=== PATIENT | female | born 1970 | race Caucasian/White ===

== ENCOUNTER 2018-06-28 18:34 | Emergency (ER) | payer SELFPAY ==
[2018-06-28 18:35] VITALS: BP 159/94; PULSE 79; RESP 18; TEMP 36.6; O2SAT 98; BMI 38.5
[2018-06-28 19:33] LABS: Absolute Lymphocyte Count 2.53 X10^3/ul (0.83-4.51); Absolute Neutrophil Count 3.6 X10^3/uL (2.0-7.7); Basophil# 0.04 X10^3/uL; Basophil% 0.6 % (0-1); Eosinophil# 0.31 X10^3/uL; Eosinophils% 4.4 % (0-5); Hematocrit 39.9 % (37-47); Hemoglobin 13.4 g/dl (12.0-15.0); Lymphocyte # 2.53 X10^3/ul (4.0); Lymphocyte % 35.7 % (19-41); Mean Corp Hgb Conc 33.6 g/gl (32-36); Mean Corpuscular Hgb 30.2 pg (27.0-32.0); Mean Corpuscular Volume 90.1 fL (81-99); Mean Platelet Vol. 10.1 fl (6.2-12.0); Monocyte# 0.61 X10^3/uL; Monocyte% 8.6 % (0-10); Neutrophil # 3.59 X10^3/uL (2.7-7.7); Neutrophil % 50.6 % (47-70); Platelet Count 234 K/mm3 (150-450); RBC Distribution Width CV 13.5 % (11.6-14.6); RBC Distribution Width SD 44.8 fl (35.1-43.9); Red Blood Count 4.43 M/mm3 (4.2-5.4); White Blood Count 7.1 K/mm3 (4.4-11.0)
[2018-06-28 19:37] LABS: POSITIVE COUNT NO; POSITIVE DIFFERENTIAL NO; POSITIVE MORPHOLOGY NO
[2018-06-28 19:40] LABS: Anion Gap 4 (5-15); BUN 12 mg/dL (7-18); BUN/Creat Ratio 15.4 RATIO (10-20); Calcium,Total 8.5 mg/dL (8.5-10.1); Chloride 106 mmol/L (98-107); Creatinine, Serum 0.78 mg/dL (0.55-1.02); EST Glomerular Filtration Rate 84 mL/min (>60); Est Glom Filt Rate - Afr Amer 102 mL/min (>60); Estimated Creatinine Clearance 70.52 ml/min; Glucose 98 mg/dL (74-106); Potassium 3.6 mmol/L (3.5-5.1); Sodium Level 138 mmol/L (136-145)
[2018-06-28 20:12] LABS: Internal QC Validated? YES +Cl - CLEAR BKGD; Pregnancy, Serum, hCG Quali. NEGATIVE Negative
--- NOTE | 2018-06-28 20:53 | ED.VISSUMM ---
- ER Visit Summary Date of Service: 06/28/18 Chief Complaint: heavy vaginal bleeding History of Present Illness: The patient is a 47 F who presents for vaginal bleeding that is heavy. Patient is on her normal period, and states that it was light. It then stopped and started again 2 days ago. Since last night it is been very heavy, and patient is soaking 1 pad an hour. She denies any lightheadedness or dizziness. No vaginal discharge or urinary symptoms. Mild abdominal cramping consistent with her menstrual cramps but otherwise no abdominal pain. She denies . She has been having other darwin-menopausal symptoms recently. Physical Examination: Vital signs: afebrile, hemodynamically stable, no hypoxia on room air General: well nourished, well developed, in no distress Skin: warm, dry, no rash, no pallor HEENT: normocephalic and atraumatic; PERRL, EOMI, moist mucous membranes Cardiovascular: regular rate and rhythm without murmurs, no peripheral edema, 2+ pulses all distal extremities Respiratory: No increased work of breathing, lungs are clear to auscultation bilaterally, no rales, rhonchi or wheezing Abdominal: Abdomen is soft, nontender with normoactive bowel sounds, no guarding or rebound, no masses MSK: Moves all extremities, no deformities, normal strength Neuro: Awake and alert, oriented ?4. No facial droop, sensation and motor function intact and symmetric Test Results: [] Emergency Department Course and Treatment: Patient declined a pelvic exam. She stated at this point since she has been here her bleeding has diminished and she is not had to change her pad yet. I discussed the patient with Dr. Fitch, who stated the patient can follow-up this week in her office. At this time there is no indication to prescribe any medications for heavy vaginal bleeding. Patient is to return if any concerns. Patient was discharged home. Treatment Plan: [] Disposition: [] Impression: Heavy menstrual period, abnormal uterine bleeding This note was generated with [employer] dictation software. It may contain incorrect words, spelling, and punctuation that were not noted in review of the chart prior to signing ED Disposition - Plan for ED Patient: Disposition: Home or Assisted Living Instructions: ED Bleed Irregular Vaginal Referrals: NOT,DEFINED [NON-STAFF] - Julianna Fitch MD [STAFF PHYSICIAN] - 5-7 Days Additional Instructions: Call Dr. Fitch to set up an appointment for within the week. Return to the emergency department if you have any lightheadedness, dizziness, feeling faint, return of severe heavy vaginal bleeding, or if you have any other concerns.
[2018-06-28 21:02] VITALS: RESP 18
== END 2018-06-28 21:04 | disposition home or self-care (01) ==
PROVIDERS: Emergency Provider Emergency Medicine
DX: N92.0 Excessive and frequent menstruation with regular cycle (principal); N93.9 Abnormal uterine and vaginal bleeding, unspecified
CPT/HCPCS: 80048; 84703; 85025; 99284; A4216

== ENCOUNTER → 2018-07-06 | Outpatient (CLI) | payer SELFPAY ==
[2018-06-28 18:35] VITALS: BMI 38.5
[2018-07-06 14:15] LABS: Thyroid Stim Hormone (TSH) 4.24 uIU/mL (0.358-3.74)
[2018-07-07 09:17] LABS: Free T3 3.4 pg/mL (2.18-3.98); T4 Free Direct 1.08 ng/dL (0.76-1.46)
== END | disposition home or self-care (01) ==
LOC: WOBLAB 11:30
PROVIDERS: Visit Provider Obstetrics & Gynecology
DX: N92.4 Excessive bleeding in the premenopausal period (principal)
CPT/HCPCS: 36415; 84439; 84443; 84481

== ENCOUNTER → 2018-11-05 17:46 | Outpatient (CLI) | payer SELFPAY ==
[2018-11-10 12:16] LABS: HPV Reflexed? NOT INDICATED
== END ==
PROVIDERS: Referring Provider Obstetrics & Gynecology; Visit Provider Obstetrics & Gynecology
DX: Z12.4 Encounter for screening for malignant neoplasm of cervix (principal)
CPT/HCPCS: 88175; G0145

== ENCOUNTER → 2018-12-09 15:51 | Outpatient (CLI) | payer SELFPAY ==
--- NOTE | 2018-12-09 15:55 | BI_ITS ---
BILATERAL DIGITAL MAMMOGRAM WITH TOMOSYNTHESIS: Mediolateraloblique and craniocaudal views demonstrate no evidence of dominant parenchymal masses. No cluster of microcalcifications or architectural distortion is seen. No evidence of skin thickening is identified There has been no significant change since 03/18/2017. Breast Density: The breast tissue is heterogeneously dense, which may obscure small masses. CAD was used to assist in final assessment. NORMAL MAMMOGRAM BILATERALLY. Yearly follow-up mammogram recommended. (A) ASSESSMENT CATEGORY: BIRADS Category 1: Negative. A letter regarding these results will be sent to the patient by the facility within 30 days. Yearly follow-up mammogram recommended. (A) Approximately 10% of breast cancers are not detected by mammography. A normal mammogram should not delay biopsy of a clinically suspicious abnormality. [id number] Electronically Signed: Mao Tejal, at 16:46 EDT Tel , Service support , BI/SCREEN MAMM (CAD) W/CLAU DONAHUE
== END ==
PROVIDERS: Referring Provider Obstetrics & Gynecology; Visit Provider Obstetrics & Gynecology
DX: Z12.31 Encounter for screening mammogram for malignant neoplasm of breast (principal)
CPT/HCPCS: 77063; 77067

== ENCOUNTER → 2019-10-12 14:30 | Outpatient (CLI) | payer SELFPAY ==
[2019-10-12 13:44] VITALS: BMI 38.5
[2019-10-12 15:05] LABS: Absolute Lymphocyte Count 2.72 X10^3/uL (0.83-4.51); Absolute Neutrophil Count 4.5 X10^3/uL (2.0-7.7); Basophil# 0.05 X10^3/uL; Basophil% 0.6 % (0-1); Eosinophil# 0.25 X10^3/uL; Hematocrit 40.6 % (37-47); Hemoglobin 12.5 g/dL (12.0-15.0); Lymphocyte # 2.72 X10^3/ul (4.0); Lymphocyte % 32.7 % (19-41); Mean Corp Hgb Conc 30.8 g/dL (32-36); Mean Corpuscular Hgb 26.5 pg (27.0-32.0); Mean Corpuscular Volume 86.2 fL (81-99); Mean Platelet Vol. 10.1 fl (6.2-12.0); Monocyte# 0.75 X10^3/uL; NRBC Flagged by Analyzer 0 % (0-5); Neutrophil # 4.54 X10^3/uL (2.7-7.7); Neutrophil % 54.5 % (47-70); Platelet Count 303 K/mm3 (150-450); RBC Distribution Width CV 14.6 % (11.6-14.6); RBC Distribution Width SD 45.5 fl (35.1-43.9); Red Blood Count 4.71 M/mm3 (4.2-5.4); White Blood Count 8.3 K/mm3 (4.4-11.0)
[2019-10-12 16:44] LABS: Estradiol 51.5 pg/mL; Follicle Stimulating Hormone 21.6 mIU/mL; Prolactin 6.9 ng/mL; T4 Free Direct 1.11 ng/dL (0.76-1.46); Thyroid Stim Hormone (TSH) 4.83 uIU/mL (0.358-3.74)
== END ==
PROVIDERS: Referring Provider Obstetrics & Gynecology; Visit Provider Obstetrics & Gynecology
DX: N93.9 Abnormal uterine and vaginal bleeding, unspecified (principal); Z13.29 Encounter for screening for other suspected endocrine disorder
CPT/HCPCS: 36415; 82670; 83001; 84146; 84439; 84443; 85025

== ENCOUNTER → 2019-10-17 16:26 | Outpatient (CLI) | payer SELFPAY ==
[2019-10-12 13:44] VITALS: BMI 38.5
--- NOTE | 2019-10-17 16:36 | US_ITS ---
STUDY: ULTRASOUND OF THE FEMALE PELVIS - COMPLETE REASON FOR EXAM: Female, 48 years old. Abnormal uterine leaking. LMP: 08/14/2019. TECHNIQUE: Transabdominal TECHNICAL QUALITY: Adequate. COMPARISON: None. FINDINGS: The uterus is anteverted and is in a midline position. The uterus measures 9.5 x 7.2 x 4.1 cm. Normal uterine cervix. The endometrium measures 9.5 mm in thickness, and is hyperechoic. There is no demonstrated endometrial mass. There is no demonstrated myometrial mass. I.U.D. - The patient does not have an I.U.D. The right ovary is not visualized. There is no visualized right adnexal mass or complex lesion. There is normal arterial and normal venous vascularity. The left ovary is not visualized. There is no visualized left adnexal mass or complex lesion. There is normal arterial and normal venous vascularity. There is no fluid in the cul-de-sac. The urinary bladder is grossly normal. Polycystic ovary disease: No. US/Pelvic (Non ) IMPRESSION: 1. Normal appearing uterus. 2. Nonvisualization the ovaries. There is no evidence of adnexal mass. 3. Normal appearing urinary bladder. Electronically Signed: Eddie Ware DO at 22:49 EDT Tel [phone], Service support ,
== END ==
PROVIDERS: Referring Provider Obstetrics & Gynecology; Visit Provider Obstetrics & Gynecology
DX: N93.9 Abnormal uterine and vaginal bleeding, unspecified (principal)
CPT/HCPCS: 76856

== ENCOUNTER → 2019-10-18 07:15 | Outpatient (CLI) | payer SELFPAY ==
[2019-10-12 13:44] VITALS: BMI 38.5
[2019-10-18 08:04] LABS: Cholesterol 203 mg/dL (200); Glucose 115 mg/dL (74-106); High Density Lipoprotein 35 mg/dL; Triglycerides 209 mg/dL; Very Low Density Lipoprotein 42 mg/dL (5-40)
[2019-10-18 09:33] LABS: Vitamin D,25 Hydroxy 27.3 ng/mL
== END ==
PROVIDERS: Referring Provider Obstetrics & Gynecology; Visit Provider Obstetrics & Gynecology
DX: N93.9 Abnormal uterine and vaginal bleeding, unspecified (principal)
CPT/HCPCS: 36415; 80061; 82306; 82947

== ENCOUNTER → 2019-10-24 | Outpatient (CLI) | payer SELFPAY ==
--- NOTE | 2019-10-24 | EMB_PTH ---
PATIENT: ROLAN GIL LOC: [facility] U#:[id number] AGE/SX: 48/F ROOM: RE10/24/[address]: Dr. Lorraine Bhagat MD : 1970 BED: DIS: 10/24/2019 SPEC #: [id number] RECD: 10/24/19 16:51 STATUS: ANNA LILLIANA #: [id number] JOE: 10/24/19 00:[address]: Lorraine Bhagat DEPT: SURGICAL PATHOLOGY RECD BY: Isaias More ENTERED: 10/25/19 08:03 SP TYPE: ENDOM BX/C NICKY DR: No Primary Care Phys Tissues: Endometrium, NOS Procedures: Surgery Specimen Level IV HEADER OPERATION: Endometrial biopsy PRE-OP DIAGNOSIS: Abnormal uterine bleeding TISSUE SUBMITTED: Endometrial lining MICROSCOPIC DIAGNOSIS Endometrium, biopsy: Proliferative endometrium with focal stromal breakdown and eosinophilic metaplasia. AM:sawyer 10/26/19 COMMENT The submitted material is scant. Clinical correlation is suggested Case has been reviewed in consultation with Dr. Chavez who concurs with the above diagnosis. IDC:JAY MICROSCOPIC DESCRIPTION Slides are reviewed. GROSS DESCRIPTION Received is one container labeled with the patient's name and not further designated. The specimen consists of multiple irregular fragments of mclain mucoid tissue that in aggregate measure 1.5 x 1 x 0.1 cm. The specimen is totally submitted in one cassette. / JAY:sawyer 10/25/19 TC:5 CPT: 82124
[2019-10-24 15:14] VITALS: BMI 39.5
== END | disposition home or self-care (01) ==
LOC: LABSPEC 16:59
PROVIDERS: Referring Provider Obstetrics & Gynecology; Visit Provider Obstetrics & Gynecology
DX: N93.9 Abnormal uterine and vaginal bleeding, unspecified (principal)
CPT/HCPCS: 88305

== ENCOUNTER 2020-01-31 08:23 | Day surgery (SDC) | payer SELFPAY ==
[2019-10-24 15:14] VITALS: BMI 39.5
[2020-01-16 14:02] VITALS: BMI 40.1
[2020-01-27 15:08] LABS: Hematocrit 39.3 % (37-47); Hemoglobin 12.5 g/dL (12.0-15.0); Mean Corp Hgb Conc 31.8 g/dL (32-36); Mean Corpuscular Hgb 27.5 pg (27.0-32.0); Mean Corpuscular Volume 86.6 fL (81-99); Mean Platelet Vol. 10.7 fl (6.2-12.0); Platelet Count 290 K/mm3 (150-450); RBC Distribution Width CV 14.3 % (11.6-14.6); RBC Distribution Width SD 45.1 fl (35.1-43.9); Red Blood Count 4.54 M/mm3 (4.2-5.4)
[2020-01-27 15:49] LABS: Magnesium 2.1 mg/dL (1.6-2.6)
--- NOTE | 2020-01-30 15:48 | PCM.HPOB.BLA ---
- Problem List (1) Abnormal uterine bleeding Status: Acute Comment: 10 cm uterus. suspect adenomyosis. Plan LAVHBS cysto in 2-3 months. plan SDS History and Physical Date of Admission: 01/31/20 Intake Vital Signs 01/16/20 Height 5 ft 2 in 01/16/20 Weight: 219 lb 4 oz 01/16/20 BMI 40.1 01/16/20 BP 158/90 H Intake Visit Reasons: Pre-op/LAVH Crossing Tender Required: No Accompanied by: self Allergies latex Allergy (Verified 01/16/20 14:02) Rash Penicillins Allergy (Verified 01/16/20 14:02) Rash Medications norgestimate 0.25 mg-ethinyl estradiol 35 mcg tablet 1 tab PO DAILY #28 tab 10/24/19 [Rx Confirmed 01/16/20] Patient : No : No [facility] Surgical History delivery delivered (Acute) Tubal ligation status (Acute) Social History (Updated 01/16/20 @ 14:[address] Lorraine Bhagat MD) Smoking Status: Never smoker alcohol intake: never substance use type: does not use caffeine: Yes what type of physical activity do you participate in: walking frequency: 1-2 times per week seatbelt use: always do you feel safe at home: Yes additional social history: [employer] Patient works at [employer] HPI Pre-op/LAVH: Details: ROLAN GIL is a 49 year old who presents for AUB and possible adenomyosis. Pregancy History 3 Elective abortions Hx Para 3 Spontaneous abortions Hx # Term Pregnancies Ectopic pregnancies Hx # Pregnancies Multiple births # of living children Past Pregnancies Del. Date Name GA/Weeks Outcome Route Bth Weight Gen Labor Lgth Anesthesia Del Locatn Provider FOB Unknown 1994 Audie live - full term Unknown 1997 Kayli live - full term Unknown 1999 Og live - full term ROS Const Constitutional: Denies fatigue, fever(s), headache(s), increased appetite, poor appetite, weight gain or weight loss ENT ENT: Reports system reviewed and no additional complaints, except as docu Cardio Card: Denies chest pain Resp Resp: Denies cough or dyspnea GI GI: Reports as per HPI; denies abdominal pain, constipation, nausea or vomiting : Reports as per HPI; denies difficulty urinating, painful urination, blood in urine, nipple discharge, pelvic pain, urinary frequency, urinary incontinence, urinary hesitancy, urinary urgency, vaginal discharge, vaginal dryness, vaginal odor, vaginal itching or other Musc Musc: Denies joint pain, back pain or muscle weakness Skin Skin/Breast: Denies nipple discharge Neuro Neuro: Reports system reviewed and no additional complaints, except as docu Psych Psych: Reports system reviewed and no additional complaints, except as docu Endo Endo: Denies cold intolerance, excessive sweating, heat intolerance or increased thirst Dionte/Lymph Hematologic/Lymphatic: Denies easy bleeding, Denies easy bruising, Denies enlarged lymph nodes Exam Const General: cooperative, healthy appearing, comfortable, no acute distress, well developed Orientation: alert [facility] Head: normal to inspection, normocephalic Ears: hearing grossly normal bilaterally, external ears normal Nose: external nose normal, nares normal Face and sinus: normal facial exam Neck Neck: normal visual inspection, no lymphadenopathy, trachea midline Thyroid: thyroid normal Chest Chest palpation & inspection: normal inspection of the chest Resp Effort & Inspection: normal respiratory effort Auscultation: clear to auscultation bilaterally Cardio Rate: regular rate Rhythm: regular rhythm GI Inspection: normal to inspection, non-distended Palpation: soft, no hepatosplenomegaly Musc Other: gross motor intact no deficits, full bilateral strength Skin General: no rashes or lesions noted Neuro General: alert, awake, moves all extremities, no focal motor deficits Motor: muscle tone normal throughout Extrem General: normal to inspection, no pedal edema Psych Appearance: grossly normal Mental Status: mental status grossly normal Affect: normal affect Speech and Movement: speech and movement normal Assessment & Plan Problems 1. Abnormal uterine bleeding N93.9 10 cm uterus. suspect adenomyosis. Plan LAVHBS cysto in 2-3 months. plan SDS Plan After discussing the patient's diagnosis and treatment plan options, patient wishes to proceed with surgical management. I have discussed with the patient the risks, benefits, and alternatives of the procedure which include but are not limited to risks of anesthesia, bleeding, infection, possible damage to bowel, bladder, or surrounding vasculature which could lead to additional surgery to evaluate any complications. Patient agrees to procedure and wishes to proceed. ACOG/uptodate references given for additional information regarding procedure. Coding Level of Care Code No Charge Diagnoses Abnormal uterine bleeding N93.9
[2020-01-31] VITALS (21 sets, daily range): BP systolic 76–151; BP diastolic 47–84; PULSE 60–86; RESP 16–18; TEMP 36.1–36.8; O2SAT 86–99; BMI 38.5
--- NOTE | 2020-01-31 | HYST_PTH ---
PATIENT: ROLAN GIL [place] [facility] [place][id number] AGE/SX: 49/F ROOM: RE01/31/[address]: Dr. Lorraine Bhagat MD : 1970 BED: DIS: 02/01/2020 SPEC #: [id number] RECD: 01/31/20 14:31 STATUS: ANNA LILLIANA #: [id number] JOE: 01/31/20 00:[address]: Lorraine Bhagat DEPT: SURGICAL PATHOLOGY RECD BY: Joanne Archuleta ENTERED: 02/01/20 08:32 SP TYPE: HYSTERECT OTHR DR: No Primary Care Phys Tissues: Uterus, NOS Procedures: Surgery Specimen Level V HEADER OPERATION: ERAS, hysterectomy, LAVH, bilateral salpingectomy, Cysto PRE-OP DIAGNOSIS: Abnormal uterine bleeding TISSUE SUBMITTED: Uterus, bilateral fallopian tubes MICROSCOPIC DIAGNOSIS Uterus, hysterectomy: Cervix - minimal chronic inflammation. Endometrium - proliferative endometrium. Myometrium - leiomyomas. Right and left fallopian tubes - no pathologic change. AM:sawyer 02/02/20 MICROSCOPIC DESCRIPTION Slides are reviewed. GROSS DESCRIPTION Received in fixative is one container labeled with the patient's name and designated uterus. The specimen consists of a uterus with attached cervix and attached right and left fallopian tubes. The uterus with cervix measures 11 x 8.5 x 5.5 cm and weighs 206 gm. The right and left fallopian tubes are similar in appearance with average lengths of 5 cm and average diameters of 0.7 cm. The ectocervix is unremarkable. The endocervical canal measures 3.8 cm in length and is grossly unremarkable. The triangular endometrial cavity measures 4.5 x 4 cm. The reddish-mclain, velvety endometrium measures up to 0.2 cm in thickness. The myometrium measures 2.5 cm in average thickness and contains a single myometrial nodule measuring 1.5 cm in diameter. Serial sections of fallopian tubes does not reveal mass lesions. Glue Bone Drier sections are submitted in nine cassettes as follows: 1 - anterior cervix, 2??posterior cervix, 3 & 4 - anterior uterine wall, 5 & 6 - posterior uterine wall, 7 - myometrial mas, 8??right fallopian tube, 9 - left fallopian tube. / AM:sawyer 02/01/20 TC:1 CPT: 38602
[2020-01-31] MEDS: Lactated Ringers 1,000 ML 40 ML IV (07:00)
--- NOTE | 2020-01-31 07:53 | PCM.OPRPT ---
Problem List (1) Abnormal uterine bleeding Status: Acute Comment: 10 cm uterus. suspect adenomyosis. Plan LAVHBS cysto in 2-3 months. plan SDS Report of Operation Date of Procedure: 01/31/20 Pre-Operative Diagnosis: aub previous Post-Operative Diagnosis: same Surgery/Procedure Performed:: lavh bs cysto Description of Surgical Findings:: thickened parametrium enlarged uterus minimal vesicouterine scar tissue lead slot technician: Yadira Walker lead slot technician: Leyla Barker Type of Anesthesia:: General Special Medications: pepe Specimen's removed: uterus tubes Drains: slater Estimated Blood Loss (mL): 150 Fluids Replaced: crystalloid Description of Procedure: Patient received preoperative antibiotics and SCDs were on preoperatively. Patient was taken back to the operating room and placed in the dorsal lithotomy position. General anesthesia was induced and patient was prepped and draped in normal sterile fashion. Uterine manipulator was placed inside the uterus and Slater catheter placed in the bladder. The umbilicus was grasped with towel clamps and an intraumbilical incision was made after injecting with quarter percent Marcaine and a Veress needle entered into the abdomen confirmed to be intra-abdominal with a low opening pressure. Abdomen was insufflated with CO2 gas and the Veress needle removed and the 5 mm trocar was placed under direct visualization without complication. Right and left lower quadrants were transilluminated and injected with quarter percent Marcaine and 5 mm ports placed under direct visualization. Pelvis was well visualized see operative findings for additional information. Bilateral fallopian tubes were identified and transected with the LigaSure device across the mesosalpinx to the level of the utero-ovarian ligament which was also transected with the LigaSure device. The broad ligament was opened up by transecting the round ligament bilaterally and skeletonizing the uterine vessels bilaterally and creating a bladder flap using the LigaSure device. The uterine arteries were transected bilaterally with good visualization of the bladder and the ureters were seen to be inferior lateral to the operative area. Attention was then paid to the vaginal portion of the procedure and the cervix was grasped with Chauncey clamps and circumferentially injected with dilute vasopressin. A circumferential incision was made and the vaginal mucosa was mobilized off posteriorly and the cul-de-sac entered into sharply and a longneck speculum placed. The anterior cul-de-sac was then identified and entered into sharply. The uterosacral ligaments were clamped cut and suture ligated with 0 Monocryl bilaterally followed by the cardinal ligaments which were clamped cut and suture ligated bilaterally with 0 Monocryl. The uterus serially descended and was removed without difficulty with minimal morcellation. Pelvic sidewall pedicles were checked and noted to have excellent hemostasis. The vaginal mucosa was reapproximated incorporating the posterior peritoneum. This was reapproximated using 0 Vicryl [id number] sutures. Excellent hemostasis was noted. The pelvis and cul-de-sac was well visualized and no significant active bleeding noted but some raw areas were seen on the peritoneum and therefore Pepe was applied. Pressure was taken down and the areas visualized and area of bleeding were cauterized and treated with pepe and noted to have excellent hemostasis. The cystoscopy was then performed and bilateral ureteral strong spray was noted and the bladder was noted to have no abnormality or lesions seen. All ports were removed under direct visualization without complication and the abdomen was desufflated of air. The instruments removed from the abdomen and the vagina vaginal sweep was negative. Port sites on the abdomen were closed with 4-0 Monocryl interrupted sutures and Steri's and windows were applied. She was awoken and taken recovery in stable condition. Grafts/Implants Used: none - Complications none Multi Select Codes - Urinary/Genital Urinary/Genital CPT Codes: 41883 Cystoscopy, 31795 LAVH+BS/O <250gr Uterus
--- NOTE | 2020-01-31 07:54 | PCM.DC.VHY ---
<Lorraine Bhagat - Last Filed: 01/31/20 07:54> Discharge Diet: No Restrictions Discharge Activity: Return to Normal Activity, May Not Drive, May Shower May resume sexual activity in: 6-8 weeks Call your doctor if your incision/area has: Continuous Slow Oozing, Sudden Increased Bleeding, Increased Pain/ Swelling, Increased Redness, Foul Smelling Discharge Call your doctor if you observe: Fever of 101 or Higher, Inability to urinate, Inability to have a bowel movement, Using more than one pad per hour Allergies/Adverse Reactions: Allergies latex Allergy (Verified 01/20/20 11:08) Rash Penicillins Allergy (Verified 01/20/20 11:08) Rash Medications to take at Discharge Acetaminophen [Tylenol Extra Strength] 500 - 1,000 mg PO Q6H PRN PRN 01/20/20 Naproxen [Naprosyn] 250 - 500 mg PO Q8H PRN PRN #30 tab 01/31/20 Oxycodone HCl/Acetaminophen [Percocet 5-325] 1 - 2 tab PO Q6H PRN PRN 7 Days #15 tab 01/31/20 The following prescriptions were given: Naproxen [Naprosyn] 250 - 500 mg PO Q8H PRN PRN #30 tab PRN Reason: MILD PAIN Transmission Status: Received by [facility] Oxycodone HCl/Acetaminophen [Percocet 5-325] 1 - 2 tab PO Q6H PRN PRN 7 Days #15 tab PRN Reason: Pain Transmission Status: Received by [facility] Primary Care Physician: Care Physician,No Primary [Primary Care Provider] - Test Results: Test results from this visit will be discussed in further detail at your follow-up appointment, if applicable. Please Follow Up With: Lorraine Bhagat MD - [phone] <Kellen Raines NP - Last Filed: 02/01/20 08:13> Test Results: Test results from this visit will be discussed in further detail at your follow-up appointment, if applicable.
[2020-01-31] MEDS: Phenazopyridine 95 MG Tablet 190 MG PO (09:06)
[2020-01-31] MEDS: Celecoxib 200 MG Capsule 400 MG PO (09:07)
[2020-01-31] MEDS: Gabapentin 600 MG Tablet PO (09:07)
[2020-01-31] MEDS: Acetaminophen 500 MG Tablet 1000 MG PO ×2 (09:08→21:32)
[2020-01-31] MEDS: dexAMETHasone 10 MG/ML Vial 8 MG IV (09:09)
[2020-01-31] MEDS: Enoxaparin 40 MG/0.4 ML Syringe SC (09:09)
[2020-01-31 09:56] LABS: Bedside Glucose 115 mg/dL (70-110)
[2020-01-31] MEDS: Bupivacaine 0.25% 30 ML Vial (12:30)
[2020-01-31] MEDS: Lubricating Jelly 60 GM Tube 30 GM TOPICAL (12:30)
[2020-01-31] MEDS: Vasopressin 20 UNITS/ML Vial (12:46)
[2020-01-31] MEDS: Ondansetron 4 MG/2 ML Vial IV (13:32)
[2020-01-31] MEDS: Lactated Ringers 1,000 ML 70 ML IV ×2 (14:44→21:34)
[2020-01-31] MEDS: Ketorolac 30 MG/ML Syringe IV ×2 (16:13→23:55)
[2020-01-31 16:21] LABS: Hematocrit 36.8 % (37-47); Hemoglobin 11.7 g/dL (12.0-15.0); Mean Corp Hgb Conc 31.8 g/dL (32-36); Mean Corpuscular Hgb 27.9 pg (27.0-32.0); Mean Corpuscular Volume 87.6 fL (81-99); Mean Platelet Vol. 9.9 fl (6.2-12.0); Platelet Count 244 K/mm3 (150-450); RBC Distribution Width CV 14.3 % (11.6-14.6); RBC Distribution Width SD 45.3 fl (35.1-43.9); White Blood Count 9.9 K/mm3 (4.4-11.0)
[2020-01-31] MEDS: oxyCODONE 5 MG Tablet PO (21:31)
[2020-01-31] MEDS: Docusate Sodium 100 MG Capsule PO (21:32)
[2020-02-01] MEDS: oxyCODONE 5 MG Tablet PO ×4 (01:33→16:13)
[2020-02-01 04:03] VITALS: BP 102/51; PULSE 63; RESP 16; TEMP 36.6; O2SAT 97
[2020-02-01] MEDS: Acetaminophen 500 MG Tablet 1000 MG PO ×2 (04:50→12:09)
[2020-02-01] MEDS: Ketorolac 30 MG/ML Syringe IV ×2 (04:54→12:09)
--- NOTE | 2020-02-01 08:09 | PCM.PN.OB ---
Patient Problems: Active and Suspected Problems (Last Reviewed 01/16/20 @ 14:03 by Aline Rae) Abnormal uterine bleeding (Acute) 10 cm uterus. suspect adenomyosis. Plan LAVHBS cysto in 2-3 months. plan SDS Subjective: Patient doing well without complaints. Pain contrlled. Tolerating PO. Ambulating with assistance and voiding without difficulty. Denies chest pain, shortness of breath, calf pain/swelling, fevers, chills, lightheadedness. - Physical Exam Vitals/I&O's: Vital Signs Temp Pulse Resp BP Pulse Ox 97.8 F 63 16 102/51 L 97 02/01/20 04:03 02/01/20 04:03 02/01/20 04:03 02/01/20 04:03 02/01/20 04:03 Oxygen Flow Rate (L/min) 1 Oxygen Delivery Method Room Air Weight: 217 lb 9.54 oz Body Mass Index (BMI) 38.5 Intake and Output for Last 24 Hours 01/30/20 01/31/20 02/01/20 23:59 23:59 23:59 Intake Total 1746.58 / 2746.58 3022.67 / 3022.67 Output Total 1450 / 1450 Balance 1746.58 / 1996.58 1572.67 / 1572.67 General: Alert, Oriented x3, Cooperative Abdomen: Soft - Dressing dry and intact. Appropriately tender. Slightly distended-no flatus yet Laboratory Results 01/31/20 08:59: POC Glucose 115 H 01/31/20 16:15: WBC 9.9, RBC 4.20, Hgb 11.7 L, Hct 36.8 L, MCV 87.6, MCH 27.9, MCHC 31.8 L, RDW Std Deviation 45.3 H, RDW Coeff of Bienvenido 14.3, Plt Count 244, MPV 9.9 Current Medications Acetaminophen (Acetaminophen 500 Mg Tablet) 1,000 mg PO Q6 [facility] Last Admin: 02/01/20 04:50 Dose: 1,000 mg Documented by: Docusate Sodium (Docusate Sodium 100 Mg Capsule) 100 mg PO BID [facility] Last Admin: 01/31/20 21:32 Dose: 100 mg Documented by: Enoxaparin Sodium (Enoxaparin 40 Mg/0.4 Ml Syringe) 40 mg SC DAILY [facility] Ketorolac Tromethamine (Ketorolac 30 Mg/Ml Syringe) 30 mg IV Q6 [facility] Stop: 02/05/20 12:10 Last Admin: 02/01/20 04:54 Dose: 30 mg Documented by: Magnesium Chloride (Magnesium Chloride 64 Mg Delay Rel.Tablet) 128 mg PO DAILY PRN PRN PRN Reason: Constipation Nutritional Formula (Lactose Free) (Ensure Enlive 120 Ml Liquid) 120 ml PO TIDCM [facility] Last Admin: 01/31/20 17:55 Dose: Not Given Documented by: Ondansetron HCl (Ondansetron Odt 4 Mg Tablet) 4 mg PO Q6H PRN PRN PRN Reason: NAUSEA Oxycodone HCl (Oxycodone 5 Mg Tablet) 5 mg PO Q4H PRN PRN PRN Reason: Pain Score 6-10 Last Admin: 02/01/20 05:27 Dose: 5 mg Documented by: Sodium Chloride (0.9% Saline Lock 10 Ml Syringe) 10 - 40 ml IV UD PRN PRN Reason: SALINE FLUSH Medical Necessity - Tobacco Use Smoking Status: Never smoker Assessment/Plan All Active Problems (Last Reviewed 01/16/20 @ 14:03 by Aline Rae) Abnormal uterine bleeding (Acute) NESTOR KING, cysto pod #1 Regular diet Encourage to ambulate Plans home today. Routine postop care
[2020-02-01 08:17] VITALS: O2SAT 91
[2020-02-01 09:14] VITALS: BP 115/56; PULSE 68; RESP 18; TEMP 37.1; O2SAT 99
[2020-02-01] MEDS: Docusate Sodium 100 MG Capsule PO ×2 (09:17→16:23)
[2020-02-01] MEDS: Enoxaparin 40 MG/0.4 ML Syringe SC (09:17)
[2020-02-01 09:46] VITALS: O2SAT 91
--- NOTE | 2020-02-01 11:42 | PHA.DC.MC ---
Pharmacy Service has performed discharge medication reconciliation and counseling for this patient. 1. OXYCODONE/ACETAMINOPHEN 5/325MG 1-2T PO Q6H PRN PAIN X 7 DAYS 2. NAPROXEN 250-500MG PO Q8H PRN MILD PAIN The patient's discharge medication list was reviewed for discrepancies and discrepancies were resolved. Home Medications Acetaminophen [Tylenol Extra Strength] 500 - 1,000 mg PO Q6H PRN PRN 01/20/20 Naproxen [Naprosyn] 250 - 500 mg PO Q8H PRN PRN #30 tab 01/31/20 Oxycodone HCl/Acetaminophen [Percocet 5-325] 1 - 2 tab PO Q6H PRN PRN 7 Days #15 tab 01/31/20 The patient was counseled on the following discharge medications and changes in medications for homegoing were reviewed. The Reason for Use, instructions for use, and potential side effects were reviewed for all new medications. The patient's questions regarding all of their medications were answered. The patient was able to verbally demonstrate an understanding of their discharge medications.
[2020-02-01 16:19] VITALS: BP 123/75; PULSE 62; RESP 14; TEMP 36.4; O2SAT 100
== END 2020-02-01 17:15 | disposition home or self-care (01) ==
LOC: SDC 08:25 → AC 08:26 → MS3 02-01 11:21
PROVIDERS: Referring Provider Obstetrics & Gynecology; Visit Provider Obstetrics & Gynecology
PROC: 0UT9FZZ Resection of Uterus, Via Natural or Artificial Opening With Percutaneous Endoscopic Assistance (ICD-10-PCS; principal; 2020-01-31 09:50)
DX: D25.9 Leiomyoma of uterus, unspecified (principal); N93.9 Abnormal uterine and vaginal bleeding, unspecified; Z20.828 Contact with and (suspected) exposure to other viral communicable diseases
CPT/HCPCS: 00944; 58552; 36415; 82962; 83735; 85027; 86850; 86900; 86901; 87426; 88307; 94762; 99251; C9803; J7120; G0463; J2405

== ENCOUNTER 2021-04-10 09:13 | Outpatient (CLI) | payer SELFPAY ==
--- NOTE | 2021-04-10 09:16 | BI_ITS ---
MAMMOGRAPHY - BILATERAL SCREENING REASON FOR EXAM: Female, 50 years old. Routine annual screening examination. PERTINENT HISTORY: Non-contributory. TECHNIQUE: Digital bilateral breast clau (3D mammographic acquisition) in the CC and MLO projections. 2-D mediolateral oblique (MLO) and craniocaudad (CC) views of both breasts were obtained. CAD: Full Field Digital Mammography with Computer Added Detection was performed. COMPARISON: Comparison is made with prior study dated 12/09/2018. FINDINGS: Breast Composition: The breasts are heterogeneously dense, which may obscure small masses. There are no dominant masses or suspicious calcifications. No other significant abnormalities are identified. There has been no significant change since the prior study. BI/SCRN MAMM (CAD)W/CLAU BILAT IMPRESSION: Stable bilateral screening mammogram. Yearly follow-up mammogram recommended. (A) ASSESSMENT CATEGORY: BIRADS Category 1: Negative. A letter regarding these results will be sent to the patient by the facility within 30 days. Approximately 10% of breast cancers are not detected by mammography. A normal mammogram should not delay biopsy of a clinically suspicious abnormality. [id number] Electronically Signed: Bronson Sal MD at 10:56 EST ,
[2021-04-10 10:42] LABS: Vitamin D,25 Hydroxy 23.9 ng/mL
[2021-04-10 10:48] LABS: Cholesterol 240 mg/dL (200); Glucose 117 mg/dL (74-106); High Density Lipoprotein 39 mg/dL; Thyroid Stim Hormone (TSH) 4.28 uIU/mL (0.358-3.74); Triglycerides 204 mg/dL; Very Low Density Lipoprotein 41 mg/dL (5-40)
== END 2021-04-10 23:59 | disposition home or self-care (01) ==
PROVIDERS: Referring Provider Nurse Practitioner Women's Health; Visit Provider Nurse Practitioner Women's Health
DX: Z12.31 Encounter for screening mammogram for malignant neoplasm of breast (principal); Z13.220 Encounter for screening for lipoid disorders; Z13.29 Encounter for screening for other suspected endocrine disorder; Z13.1 Encounter for screening for diabetes mellitus; Z13.21 Encounter for screening for nutritional disorder
CPT/HCPCS: 36415; 77063; 77067; 80061; 82306; 82947; 84443

== ENCOUNTER → 2022-08-08 | Outpatient (CLI) | payer SELFPAY ==
--- NOTE | 2022-08-08 08:52 | BI_ITS ---
MAMMOGRAPHY - BILATERAL SCREENING REASON FOR EXAM: Female, 51 years old. Routine annual screening examination. PERTINENT HISTORY: Non-contributory. TECHNIQUE: Digital bilateral breast clau (3D mammographic acquisition) in the CC and MLO projections. 2-D mediolateral oblique (MLO) and craniocaudad (CC) views of both breasts were obtained. CAD: Full Field Digital Mammography with Computer Added Detection was performed. COMPARISON: Comparison is made with prior study dated April 10, 2021 and December 09, 2018. FINDINGS: Breast Composition: The breasts are heterogeneously dense, which may obscure small masses. There are no dominant masses or suspicious calcifications. No other significant abnormalities are identified. There has been no significant change since the prior study. BI/SCRN MAMM (CAD)W/CLAU BILAT IMPRESSION: Stable bilateral screening mammogram. Yearly follow-up mammogram recommended. (A) ASSESSMENT CATEGORY: BIRADS Category 1: Negative. A letter regarding these results will be sent to the patient by the facility within 30 days. Approximately 10% of breast cancers are not detected by mammography. A normal mammogram should not delay biopsy of a clinically suspicious abnormality. [id number] Electronically Signed: Bronson Sal MD at 10:01 EDT ,
== END | disposition home or self-care (01) ==
LOC: OPBI 08:51
PROVIDERS: Referring Provider Obstetrics & Gynecology; Visit Provider Obstetrics & Gynecology
DX: Z12.31 Encounter for screening mammogram for malignant neoplasm of breast (principal)
CPT/HCPCS: 77063; 77067

== ENCOUNTER → 2023-02-02 | Outpatient (CLI) | payer SELFPAY ==
[2023-02-02 12:33] LABS: Mucous, Urine 0 SEEN /hpf (<or=2+)
[2023-02-02 12:57] LABS: Color, Urine Yellow (Yellow); Glucose, Dipstick 1000 mg/dl (Normal); Ketone-Dipstick 5 mg/dl (Negative); Leukocyte Esterase-Dipstick 25 /ul (Negative); Nitrite-Dipstick Negative (Negative); Occult Blood-Urine 25 /ul (Negative); Protein-Dipstick 15 mg/dl (Negative); Urine Bilirubin Dipstick Negative (Negative); Urine Clarity Sl. Cloudy (Clear); Urine Urobilinogen Normal (Normal)
[2023-02-02 13:48] LABS: Bacteria 2+ /hpf (None Seen); Red Blood Cells-Urine 0-5 SEEN /hpf (0-5); Squamous Epithelial Cells - UA 10-25 SEEN /hpf (5-10); White Blood Cells 0-5 SEEN /hpf (0-5)
== END | disposition home or self-care (01) ==
PROVIDERS: Visit Provider Physician Assistant
DX: R30.0 Dysuria (principal)
CPT/HCPCS: 81001; 87086; 87088

== ENCOUNTER 2023-03-05 09:01 | Emergency (ER) | payer SELFPAY ==
[2023-03-05 09:01] VITALS: BP 164/86; PULSE 87; RESP 18; TEMP 36.1; O2SAT 100; BMI 39.6
[2023-03-05 09:32] LABS: Mucous, Urine 0 SEEN /hpf (<or=2+)
--- NOTE | 2023-03-05 09:33 | EX.ED.DYSGE1 ---
HPI History of Present Illness Chief Complaint: Complaint Informant: patient Narrative Narrative: Patient is a 52-year-old female with history of multiple urinary tract infections presenting with increased urinalysis and significant hematuria. She also developed some back pain. States it is in her lower back and on the left. She states her symptom started couple days ago but it progressed. She has associated frequency, dribbling of urine, pressure with urination and hematuria. She states that her urine had been pink but it is now maroon-colored. She had some nausea this morning. Does not have any history of kidney stones. Is not seen urology in the past. Most recently had a urinary tract infection before [place]. Patient states that initially she had a TeleDoc visit with a put on antibiotic but did not work. She went to urgent care and they switched her to a different antibiotic. He does not recall the name of this antibiotic. She notes her symptoms had resolved. Denies any fever or chills. No other complaints or concerns at this time. To [id number] azole tablets prior to arrival for her symptoms. Review from urgent care visit on 02/02 shows that patient will had been prescribed 5-day course of Macrobid before they saw her. She had a urine dip that showed glucose urea. Patient at that time was treated with fluconazole for yeast vaginitis. Urine culture from that visit showed mixed positive organisms and Streptococcus agalactiae. PFSH PFS Medical History Glucosuria UTI (urinary tract infection) Vaginal candidiasis Home Medications NK 03/05/23 [History Last Taken Unknown] fluconazole 150 mg tablet 150 mg PO X1 PRN Yeast Infection symptoms #1 TAB 03/05/23 [Rx Last Taken Unknown] sulfamethoxazole 800 mg-trimethoprim 160 mg tablet (Bactrim DS) 1 tab PO BID 5 days #10 tabs 03/05/23 [Rx Last Taken Unknown] Allergy/AdvReac Type Severity Reaction Status Date / Time latex Allergy Rash Verified 02/02/23 08:42 Penicillins Allergy Rash Verified 02/02/23 08:42 Surgical History delivery delivered History of laparoscopic-assisted vaginal hysterectomy (~01/31/20) Tubal ligation status Social History Smoking Status: Never smoker alcohol intake: never substance use type: does not use caffeine: Yes what type of physical activity do you participate in: walking frequency: 1-2 times per week seatbelt use: always do you feel safe at home: Yes additional social history: QCoefficient Patient works at [employer] ROS ED Constitutional Constitutional ED: Reports other Details: malaise ; Denies chills or fever(s) Cardiovascular Cardiovascular: Denies chest pain Respiratory/Chest Respiratory/Chest: Denies cough Gastrointestinal Gastrointestinal: Reports nausea; Denies abdominal pain or vomiting Genitourinary Genitourinary ED: Reports dysuria, hematuria and urinary frequency Musculoskeletal Musculoskeletal: Reports back pain; Denies arthralgias or myalgias Integumentary Denies rash Neurologic Neurologic: Denies headache(s) or weakness Psychiatric Psychiatric: Denies anxiety Hematologic/Lymphatic Hematologic/Lymphatic: Denies easy bleeding or easy bruising EXAM Physical Exam Const Vital Signs: 03/05/23 09:01 03/05/23 10:04 Temperature 96.9 F L 97.9 F Temperature Source Temporal Oral Pulse Rate 87 66 Respiratory Rate 18 16 Blood Pressure 164/86 H 147/70 H Blood Pressure Mean 112 95 Pulse Ox 100 96 Oxygen Delivery Method Room Air Room Air Positive well nourished and well developed General Appearance ED: well developed and NAD HEENT Reports moist mucous membranes Eyes PERRL Neck supple Chest Wall inspection of chest normal Resp normal respiratory effort and clear to auscultation bilaterally Cardio regular rate and regular rhythm GI normal to inspection, nondistended, normoactive bowel sounds and non-tender Back/Spine no CVA tenderness Extremity normal to inspection Neuro oriented x3 Sensorium / Orientation: alert Motor Exam: Negative for general weakness Psych mental status grossly normal Skin no rashes or lesions noted MDM MDM MDM Narrative Medical decision making narrative: Evaluated for worsening urinary tract infections and now is having nausea and left lower back pain. She currently states she is pretty asymptomatic from back pain standpoint but she states when she does have pain is more severe and comes in waves. Differential includes urinary tract infection, pyelonephritis (lower suspicion she does not have any fever or CVA tenderness) as well as renal colic. Will obtain urinalysis, urine culture, CBC, BMP and CT flank study. Patient is given IV fluids, Zofran and IV Toradol. Patient's lab work largely remarkable. Slightly hemoconcentrated with a hemoglobin of 15.1 however her kidney function is normal at 0.71. She is hyperglycemic with a glucose of 223 and a normal anion gap. She states she is not anything to eat or drink today assume this is a fasting glucose. Urinalysis is highly consistent with urinary tract infection with positive nitrates, 500 leukocyte esterase and 4+ bacteria with elevated red blood cells and white blood cells. In addition she does have 50 glucose. Patient started on Bactrim and urine culture is pending. She is given a liter of IV fluids. She seems more comfortable. Counseling concerned that she might be a new onset diabetic as well given her hyperglycemia. I offered to start her on metformin however she states she would like to try diet and exercise changes first. I counseled that she needs establish with a primary care doctor and have this worked up further. Will give referral for primary care. She verbalized agreement understanding with this plan. Add on an A1c for when patient follows up with PCP. She does go on to note that she has had about 6 months of increased thirst and urination before the sudden onset of symptoms changes. Discussed that her increased of urinary tract infections and yeast infections might be related to undiagnosed diabetes. She verbalized understanding of this and acknowledged the importance of outpatient follow-up. Will also prescribe fluconazole given that she is prone to yeast infections after antibiotics. Lab Data Attestation: I reviewed the patient's lab results. Labs: Laboratory Results - last 24 hr 03/05/23 03/05/23 09:27 09:45 WBC 9.1 RBC 4.89 Hgb 15.1 H Hct 44.3 MCV 90.6 MCH 30.9 MCHC 34.1 RDW Std Deviation 40.5 RDW Coeff of Bienvenido 12.4 Plt Count 255 MPV 10.0 Immature Gran % (Auto) 0.300 Neut % (Auto) 70.7 H Lymph % (Auto) 18.8 L [place] % (Auto) 7.2 Eos % (Auto) 2.5 Baso % (Auto) 0.5 Absolute Neuts (auto) 6.5 Absolute Lymphs (auto) 1.72 Nucleated RBC % 0 Sodium 137 Potassium 4.0 Chloride 105 Carbon Dioxide 25.0 Anion Gap 7 BUN 7 Creatinine 0.71 Estim Creat Clear Calc 76.67 Est GFR (MDRD) Af Amer 111 Est GFR (MDRD) Non-Af 92 BUN/Creatinine Ratio 9.9 L Glucose 223 H Calcium 9.1 Urine Color Brown Urine Clarity Cloudy Urine pH 6.5 Ur Specific [place] 1.025 Urine Protein 500 H Urine Glucose (UA) 50 H Urine Ketones 5 H Urine Occult Blood 250 H Urine Nitrite Positive H Urine Bilirubin 1 H Urine Urobilinogen 1 H Ur Leukocyte Esterase 500 H Urine RBC > 100 SEEN Urine WBC 50-100 SEEN Ur Squamous Epith Cells 5-10 SEEN Urine Bacteria 4+ Urine Mucus 0 SEEN Radiography Diagnostic Testing: Clinical Impression(s) from Imaging Studies Abdomen/Pelvis CT 03/05/23 10:04 IMPRESSION: 1. 2 mm and 3 mm nonobstructing stones in the right kidney. No right hydronephrosis. 2. Normal left kidney without stones or hydronephrosis. 3. A few tiny diverticula in sigmoid colon without diverticulitis. 4. 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 5. Moderate diffuse hepatic steatosis. Electronically Signed: Heron Delacruz MD at 10:28 EST , Discharge Plan Triage Chief Complaint: Complaint ED Provider: Andra Obrien Dx/Rx/DC Orders Clinical Impression: UTI (urinary tract infection), Hyperglycemia Instructions: Diabetes: Meal Planning, ED Hyperglycemia New Poss Diabetes, ED UTIs Women Prescriptions: New sulfamethoxazole-trimethoprim [Bactrim DS] 800-160 mg tablet 1 tab PO BID 5 Days Qty: 10 0RF fluconazole 150 mg tablet 150 mg PO X1 PRN (Reason: Yeast Infection symptoms) Qty: 1 1RF Rx Instructions: Take after you have completed antibiotics if needed. If no improvement after taking, may refill and take again 3 days later No Action NK Primary Care Provider: Care Physician,No Primary Referrals: Mk Cordova MD [Med Staff - Active Staff] - As soon as possible Kamaljit Dove MD [Med Staff - Active Staff] - As soon as possible Care Physician,No Primary [Primary Care Provider] - Activity Restrictions/Additional Instructions: Follow-up with the family doctor as soon as possible for recheck of your blood sugar. We did add on an A1c today which is a marker for diabetes. 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 All antibiotics as prescribed. You have also been given prescription for fluconazole in case you develop a yeast infection after taking antibiotics. There is 1 refill to take 3 to 7 days later if you continue to have yeast infection symptoms. Patient drinking plenty of fluids. Disposition Disposition: Home, Self Care
[2023-03-05] MEDS: Ondansetron 4 MG/2 ML Vial IV (09:46)
[2023-03-05] MEDS: Ketorolac 15 MG/ML Vial IV (09:46)
[2023-03-05] MEDS: 0.9% Normal Saline (1000mL) 1,000 ML 999 ML IV (09:46)
[2023-03-05 09:50] LABS: Glucose, Dipstick 50 mg/dl (Normal); Ketone-Dipstick 5 mg/dl (Negative); Leukocyte Esterase-Dipstick 500 /ul (Negative); Nitrite-Dipstick Positive (Negative); Occult Blood-Urine 250 /ul (Negative); Protein-Dipstick 500 mg/dl (Negative); Specific Gravity, Urine 1.025 (1.002-1.030); Urine Urobilinogen 1 mg/dl (Normal); Urine pH 6.5 (5.0 - 8.0)
[2023-03-05 09:55] LABS: Absolute Lymphocyte Count 1.72 X10^3/uL (0.83-4.51); Absolute Neutrophil Count 6.5 X10^3/uL (2.0-7.7); Basophil# 0.05 X10^3/uL; Basophil% 0.5 % (0-1); Eosinophil# 0.23 X10^3/uL; Eosinophils% 2.5 % (0-5); Hematocrit 44.3 % (37-47); Hemoglobin 15.1 g/dL (12.0-15.0); Lymphocyte # 1.72 X10^3/ul (0.83-4.51); Lymphocyte % 18.8 % (19-41); Mean Corp Hgb Conc 34.1 g/dL (32-36); Mean Corpuscular Hgb 30.9 pg (27.0-32.0); Mean Corpuscular Volume 90.6 fL (81-99); Monocyte# 0.66 X10^3/uL; Monocyte% 7.2 % (0-10); NRBC Flagged by Analyzer 0 % (0-5); Neutrophil # 6.45 X10^3/uL (2.7-7.7); Neutrophil % 70.7 % (47-70); Platelet Count 255 K/mm3 (150-450); RBC Distribution Width CV 12.4 % (11.6-14.6); RBC Distribution Width SD 40.5 fl (35.1-43.9); Red Blood Count 4.89 M/mm3 (4.2-5.4); White Blood Count 9.1 K/mm3 (4.4-11.0)
[2023-03-05 10:02] LABS: Color, Urine Brown (Yellow); Urine Bilirubin Dipstick 1 mg/dL (Negative); Urine Clarity Cloudy (Clear)
[2023-03-05 10:04] VITALS: BP 147/70; PULSE 66; RESP 16; TEMP 36.6; O2SAT 96
[2023-03-05 10:04] LABS: Red Blood Cells-Urine > 100 SEEN /hpf (0-5)
--- NOTE | 2023-03-05 10:04 | CT_ITS ---
EXAM: CT ABDOMEN AND PELVIS WITHOUT INTRAVENOUS CONTRAST CLINICAL INDICATION: Kidney Stone TECHNIQUE: Helically acquired images were obtained of the abdomen and pelvis without intravenous contrast. This CT exam was performed using one or more of the following dose reduction techniques: automated exposure control, adjustment of the mA and/or kV according to patient size, and/or use of iterative reconstruction technique. RADIATION DOSE: CTDIvol = 20.06 mGy, DLP = 1102.82 mGy-cm COMPARISON: No relevant prior studies available. FINDINGS: LOWER THORAX: Unremarkable. Lung bases are clear. No cardiomegaly. No significant pericardial effusion. ABDOMEN: LIVER: Moderate diffuse fatty infiltration of the liver. GALLBLADDER AND BILE DUCTS: Unremarkable. No calcified gallstones. No gallbladder distention or wall edema. No intra- or extrahepatic biliary ductal dilation. PANCREAS: Unremarkable. No focal cystic mass. SPLEEN: Unremarkable. Normal size without focal cystic or solid mass. ADRENALS: Unremarkable. No nodules. KIDNEYS AND URETERS: 2 mm and 3 mm nonobstructing stones in the right kidney. No hydronephrosis of the right kidney. Normal left kidney. No stones or hydronephrosis in the left kidney. Normal renal size and position. STOMACH AND BOWEL: Few diverticula in the sigmoid colon without diverticulitis. No stomach or bowel distention. PELVIS: APPENDIX: Normal. BLADDER: Unremarkable. REPRODUCTIVE: Unremarkable as visualized. No mass. ABDOMEN and PELVIS: INTRAPERITONEAL SPACE: Unremarkable. No ascites or other fluid collection. No free air. BONES/JOINTS: Small calcified posterior bulging annulus at L1-L2 disc space level. No lytic or blastic lesions. SOFT TISSUES: 6.7 x 5.1 x 4.4 cm benign lipoma overlying the right lower rib cage. No discrete abdominal or pelvic wall hernia. VASCULATURE: Unremarkable. Abdominal aorta is non-dilated. LYMPH NODES: Unremarkable. No enlarged lymph nodes. CT/Abdomen/Pelvis without Cont IMPRESSION: 1. 2 mm and 3 mm nonobstructing stones in the right kidney. No right hydronephrosis. 2. Normal left kidney without stones or hydronephrosis. 3. A few tiny diverticula in sigmoid colon without diverticulitis. 4. 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 5. Moderate diffuse hepatic steatosis. Electronically Signed: Heron Delacruz MD at 10:28 EST ,
[2023-03-05 10:05] LABS: Bacteria 4+ /hpf (None Seen); White Blood Cells 50-100 SEEN /hpf (0-5)
[2023-03-05 10:06] LABS: Squamous Epithelial Cells - UA 5-10 SEEN /hpf (5-10)
[2023-03-05 10:07] LABS: Anion Gap 7 (5-15); BUN 7 mg/dL (7-18); BUN/Creat Ratio 9.9 RATIO (10-20); Calcium,Total 9.1 mg/dL (8.5-10.1); Chloride 105 mmol/L (98-107); Creatinine, Serum 0.71 mg/dL (0.55-1.02); EST Glomerular Filtration Rate 92 mL/min (>60); Est Glom Filt Rate - Afr Amer 111 mL/min (>60); Estimated Creatinine Clearance 76.67 ml/min; Glucose 223 mg/dL (74-106); Sodium Level 137 mmol/L (136-145)
[2023-03-05] MEDS: Smz/Tmp Ds Tablet 1 TABLET PO (10:40)
[2023-03-05 11:17] VITALS: PULSE 62; RESP 16; TEMP 36.4; O2SAT 96
[2023-03-05 11:18] VITALS: PULSE 62; RESP 16; TEMP 36.4; O2SAT 96
[2023-03-05 13:36] LABS: Hemoglobin A1c 9.6 % (3.8-5.6)
== END 2023-03-05 11:24 | disposition home or self-care (01) ==
PROVIDERS: Emergency Provider Emergency Medicine; Visit Provider Emergency Medicine
DX: N39.0 Urinary tract infection, site not specified (principal); R73.9 Hyperglycemia, unspecified; Z90.710 Acquired absence of both cervix and uterus; Z98.51 Tubal ligation status
CPT/HCPCS: 74176; 80048; 81001; 83036; 85025; 87086; 87088; 96361; 96374; 96375; 99283; J7030; A4216; J2405

== ENCOUNTER → 2023-04-10 | Outpatient (CLI) | payer SELFPAY ==
--- OUTSIDE RECORDS SUMMARY | 2023-04-10 16:52 | XMS RPT_ITS | CCD ---
Author Name Unknown Address [address] [facility] [address] [place] [address] Organization [facility] Care Team Providers Care Machinery Dismantler Name Role Phone MIRI BGIGS (PA-C) Referring Unavai TOYA Jesus (CLERICAL TRANSCRIBER) Referring Unava ilable PHYSICIAN, NONE Primary Care Physician Collins Beckford MD., DR. GARDNER Referring Riley STARK MD., DR. GARDNER Attending Riley ferrer PHYSICIAN, NONE Primary Care Unavailable Allergies Allergy Classification Reported Allergen(s) Allergy Type Date of Onset Reaction(s) Facility (1 source) Latex; Translations: [LATEX] Propensity to adverse reactions to drug (disorder) 6 [facility] Repository (1 source) Penicillins; Translations: [PENICILLINS] Propensity to adverse reactions to drug (disorder) [address] [place] [address] Repository (1 source) Penicillin; Translations: [penicillin] Drug Allergy [facility] Medications Current Medications Medication Drug Class(es) Dates Sig (Normalized) Sig (Original) oxyCODONE hydrochloride 5 mg oral tablet (1 source) Opioid Agonist Start: 02-19-2022 End: 02-21-2022 oxyCODONE 5 mg oral tablet ( IMMEDIATE release ) Dose : 5 mg = 1 tab(s), Oral, q6h, X 2 day(s), # 7 tab(s), 0 Refill(s), 02/21/22 1:27:00 EST, Occult fracture of elbow Start Date: 02/19/22 Stop Date: 02/21/22 Status: Ordered Problems Problem Classification Problem Date Documented Da te Episodic/Chronic Fracture of upper limb (1 source) Closed fracture of lower end of humerus; Translations: [Unspecified fracture of lower end of unspecified humerus, initial encounter for closed fracture] Onset: 02-18-2022 Episodic Spondylosis; intervertebral disc disorders; other back problems (1 source) Dorsalgia, unspecified; Translations: [Dorsalgia, unspecified] Onset: 04-15-2018 Episodic Results Test Name Value Interpretation Reference Range Facil ity Vital Signs Date Time Vital Sign Value Performing Clinician Randalli pearl 02-18-2022 20:09-0500 Body temperature 96.98 [degF] DR JJ STARK MD [facility] 02-18-2022 20:09-0500 Diastolic Blood Pressure Non-Invasive [address] JJ STARK MD [facility] 02-18-2022 20:09-0500 Heart rate 100 /min DR JJ STARK MD [facility] 02-18-2022 20:09-0500 Respiratory rate 16 /min DR JJ STARK MD [facility] 02-18-2022 20:09-0500 Systolic Blood Pressure Non-Invasive [address] JJ STARK MD [facility] Encounters Encounter Date Encounter Type Care Provider Facility Start: 02-18-2022 End: 02-18-2022 Emergency department patient visit DR. JJ STARK MD. Facility:B Start: 02-18-2022 End: 02-18-2022 Emergency department patient visit DR JJ STARK MD [facility] Start: 04-15-2018 End: 04-15-2018 [facility] Start: 09-09-2017 End: 09-15-2017 Patient encounter procedure [facility]IR[facility] Payers Date Payer Category Payer Unknown [id number] 1970 Unknown [id number] Functional Status Date Assessment Result Facility 02-18-2022 Functional Status Independent Monique Valeriy caruso [facility] Mental Status Date Assessment Result Facility 02-18-2022 Mental Status Orientation Oriented x 4 [facility] Discharge instructions 02-18-2022 Note Date & Type Note Facility 02-18-2022 Hospital Discharg e instructions Patient Education 02/18/2022 21:29:11 Elbow Fracture Elbow Fracture You have a break (fracture) of one or more bones of your elbow joint. This may be a small crack in the bone. Or it may be a major break, with the broken parts pushed out of position. This fracture usually takes 4 to 12 weeks to heal, depending on the type. The first step in treatment is with a splint or cast. Severe fractures may need surgery to put the bone fragments back into place. Home care Follow these guidelines when caring for yourself at home: Keep your arm elevated to reduce pain and swelling. When sitting or lying down keep your arm above the level of your heart. You can do this by placing your arm on a pillow that rests on your chest or on a pillow at your side. This is most important during the first 2 days (48 hours) after the injury. Put an ice pack on the injured area. Do this for 20 minutes every 1 to 2 hours the first day. You can make an ice pack by wrapping a plastic bag of ice cubes in a thin towel. As the ice melts, be careful that the cast or splint doesn t get wet. You can place the ice pack inside the sling and directly over the splint or cast. Continue to use the ice pack 3 to 4 times a day for the next 2 days. Then use the ice pack as needed to ease pain and swelling. Keep the splint or cast completely dry at all times. Bathe with your splint or cast out of the water. Protect it with a large plastic bag, rubber-banded at the top end. If a fiberglass splint or cast gets wet, you can dry it with a technologies division chair. You may use acetaminophen or ibuprofen to control pain, unless another pain medicine was prescribed. If you have chronic liver or kidney disease, talk with your healthcare provider before using these medicines. Also talk with your provider if you ve had a stomach ulcer or gastrointestinal bleeding. Don t put creams or objects under the cast if you have itching. Follow-up care Follow up with your healthcare provider in 1 week, or as advised. This is to make sure the bone is healing the way it should. If a splint was put on, it may be changed to a cast during your follow-up visit. X-rays may be taken. You will be told of any new findings that may affect your care. When to seek medical advice Call your healthcare provider right away if any of these occur: The cast or splint cracks The plaster cast or splint becomes wet or soft The fiberglass cast or splint stays wet for more than 24 hours Tightness or pain under the cast or splint gets worse Bad odor from the cast or wound fluid stains the cast Fingers become swollen, cold, blue, numb, or tingly You can t move your fingers Skin around cast becomes red Fever of 100.4 F (38 C) or higher, or as directed by your healthcare provider [id number] The [employer]. [address] [place] [address]. All rights reserved. This information is not intended as a substitute for professional medical care. Always follow your healthcare professional's instructions. Follow Up Care 02/18/2022 20:00:41 With:GERALD MCCARTY Address: [address] [place] [address] [facility] [place] [id number]- Business (1) When:5-7 days Comments:Use sling for comfort, use Tylenol ibuprofen ice for pain, follow-up closely with orthopedics, return if any worsening or concerning symptoms. You will need repeat x-rays in 7 to 10 days. [facility] Clinical Note 02-18-2022 Note Date & Type Note Facility 02-18-2022 Note ORIGINAL EXAMINATION: THREE XRAY VIEWS OF THE LEFT WRIST 02/18/2022 8:51 pm COMPARISON: None HISTORY: ORDERING SYSTEM PROVIDED HISTORY: Reason for Exam: pain FINDINGS: No acute fracture or dislocation is identified. The joint spaces and carpal alignment are maintained. Mild soft tissue swelling is seen surrounding the wrist. No radiopaque foreign body. A well corticated ossific density is seen anteriorly to the 5th metatarsal head on lateral view possibly an ossicle versus sequela of remote injury. IMPRESSION: No acute osseous abnormality. Preliminary Report was Dictated by a Resident Interpreted by: Charbel Ryan MD Preliminary Report By: Rey Schmidt Electronically signed By Charbel Ryan MD Dictated Date: 02/18/2022 9:20:29 PM Prelim Date: 02/18/2022 9:24:28 PM Sign Date: 02/18/2022 9:56:45 PM Ordering Provider: JJ STARK [facility] Clinical Note 02-18-2022 Note Date & Type Note Facility 02-18-2022 Note Discharge Instructions Thank you for allowing [facility] to assist you with your healthcare needs. The following is important discharge information regarding your hospital visit. Diagnosis from Today's Visit Arm pain-swelling Fall Occult fracture of elbow What to Do Next Instructions from Your Care Team Discharge Home Equipment - Ordered -- Sling, Arm, 99 month(s), 02/18/22 21:29:00 EST Post Acute Orders No qualifying data available. You Need to Schedule the Following Appointments Follow Up with GERALD MCCARTY When Within 5-7 days Why: Use sling for comfort, use Tylenol ibuprofen ice for pain, follow-up closely with orthopedics, return if any worsening or concerning symptoms. You will need repeat x-rays in 7 to 10 days. Where: [address] [place] [address] [place] [address]- Business (1) Allergies penicillin Medications Please ask your primary doctor or pharmacist before taking any other medication not listed, including over the counter drugs, herbal medications, vitamins and or supplements as they may interact with your home medications. Please take this list to your next doctor s visit. Bring all medications you take, including over the counter medications, herbals and other supplements with you to your doctor s visit. Patients and families are reminded to discard old lists and to update any records with all medication providers or retail pharmacies. Education Materials Elbow Fracture You have a break (fracture) of one or more bones of your elbow joint. This may be a small crack in the bone. Or it may be a major break, with the broken parts pushed out of position. This fracture usually takes 4 to 12 weeks to heal, depending on the type. The first step in treatment is with a splint or cast. Severe fractures may need surgery to put the bone fragments back into place. Home care Follow these guidelines when caring for yourself at home: Keep your arm elevated to reduce pain and swelling. When sitting or lying down keep your arm above the level of your heart. You can do this by placing your arm on a pillow that rests on your chest or on a pillow at your side. This is most important during the first 2 days (48 hours) after the injury. Put an ice pack on the injured area. Do this for 20 minutes every 1 to 2 hours the first day. You can make an ice pack by wrapping a plastic bag of ice cubes in a thin towel. As the ice melts, be careful that the cast or splint doesn t get wet. You can place the ice pack inside the sling and directly over the splint or cast. Continue to use the ice pack 3 to 4 times a day for the next 2 days. Then use the ice pack as needed to ease pain and swelling. Keep the splint or cast completely dry at all times. Bathe with your splint or cast out of the water. Protect it with a large plastic bag, rubber-banded at the top end. If a fiberglass splint or cast gets wet, you can dry it with a technologies division chair. You may use acetaminophen or ibuprofen to control pain, unless another pain medicine was prescribed. If you have chronic liver or kidney disease, talk with your healthcare provider before using these medicines. Also talk with your provider if you ve had a stomach ulcer or gastrointestinal bleeding. Don t put creams or objects under the cast if you have itching. Follow-up care Follow up with your healthcare provider in 1 week, or as advised. This is to make sure the bone is healing the way it should. If a splint was put on, it may be changed to a cast during your follow-up visit. X-rays may be taken. You will be told of any new findings that may affect your care. When to seek medical advice Call your healthcare provider right away if any of these occur: The cast or splint cracks The plaster cast or splint becomes wet or soft The fiberglass cast or splint stays wet for more than 24 hours Tightness or pain under the cast or splint gets worse Bad odor from the cast or wound fluid stains the cast Fingers become swollen, cold, blue, numb, or tingly You can t move your fingers Skin around cast becomes red Fever of 100.4 F (38 C) or higher, or as directed by your healthcare provider [phone] [employer], [employer]. [address] [place] [address], [place] [address]. All rights reserved. This information is not intended as a substitute for professional medical care. Always follow your healthcare professional's instructions. Additional Information VACCINATE! IT SAVES LIVES! Members of the community who have not yet received the COVID-19 vaccine and would like to receive it can visit one of [facility] vaccine clinics. There are many vaccine clinic locations within the [facility]. For locations and available times, please visit [email or web address]. It is important to note that some COVID mobile vaccine clinics are held outdoors and may be canceled in rainy or stormy conditions. To learn more about pediatric vaccinations (ages 5-11), we invite you to visit the [employer] webpage. [email or web address]/pages/[email or web address]-Wmjfi-Xrooxumeuuh-Frequently-[email or web address] -Questions.html To learn more about the COVID-19 vaccine, we invite you to visit the [facility] website for a list of frequently asked questions. [email or web address] [email or web address]/[email or web address]_Xi ked-Questions.pdf [facility] Patient [facility] Access Instructions: Stay connected with your healthcare team and access your personal medical information anytime with the [email or web address] Patient Portal. If you would like a full copy of your medical records please contact the [facility] Medical Records Department Thursday through Thursday between 8a.m. and 4:30p.m. Please follow the directions below to access the portal: 1.Access the email account you provided upon registration to the hospital.2.Look for an invitation email from [facility].3.Open the email and access the invitation link: Accept Invitation to [email or web address].Fill in the required peñaloza to create your account. Sign into [email or web address] with your username and password that you created in the above steps to stay up to date. You can then view a summary of results, a summary of your visits, and the ability to download your summaries to your computer or send the information securely to a physician. Remember that your healthcare information is confidential, so carefully consider who you will allow to register on the [facility] Patient Portal for access to your information. You can also access the [facility] Patient Portal on the [employer] lisa. Simply click on Health Records under Health Data and then click on the [employer] logo. HOW TO SAFELY DISPOSE OF PRESCRIPTION MEDICATIONS Please use one of the following methods to safely dispose of your unused medications. 1.Use a drug disposal kit: the drug disposal pouch allows you to safely discard your old and unused drugs. Ask your nurse to give you one when you are discharged.2.Visit a local take-back location: Many local pharmacies and police departments have programs that collect old and unwanted prescription drugs. Call your local pharmacy or go to http://PopUp.[employer]/8Y0Cz5q to find one close to you.3.Make use of household items: Use cat litter or old coffee grounds to dispose medications if other options are not available. Mix your drugs with these household products, seal them in an airtight container and throw it into the garbage. Call [facility]: [phone] to be sure your drugs can be disposed of in this way. Some medicines may require a different approach.4.Never flush your medications down the toilet. IF YOU HAVE BEEN PRESCRIBED AN OPIOIDS FOR PAIN If you have been prescribed an opioid (such as hydrocodone, oxycodone or morphine), it is critical to understand the possible side effects and risks of opioid pain medications. Even when taken as directed, opioids can have several side effects including: Tolerance, meaning you might need to take more of a medication for the same pain relief. Nausea, vomiting and/or constipation. Sleepiness, dizziness, dry mouth, confusion, depression or itching. Physical dependence, meaning you have withdrawal symptoms when a medication is stopped ? this can develop within a few days. KNOW YOUR RESPONSIBILITIES It is important to know exactly how much and how often to take the opioid pain medications you are prescribed. Never take opioids in higher amounts or more often than prescribed. Do not combine opioids with alcohol or other drugs that cause drowsiness, such as benzodiazepines, also known as benzos, including diazepam and alprazolam, muscle relaxants or sleep aids. Never sell or share prescription opioids. This is illegal. Store opioids in a secure place and out of reach of others (including children, family, friends and visitors). The last page(s) of this document has been signed and retained as a CHART COPY Signatures Patient Education Materials Elbow Fracture Medication Leaflets My discharge plan and instructions have been reviewed and explained to me and I,JEFFERY ROLAN understand my current condition and have read and understand these discharge instructions. I have received a written copy of the plan/instructions. If I have questions, I am aware that I should contact my doctor. Patient/Head Esthetician Signature: _ Date/Time: Relationship to Patient: Witness Name/Signature: Date/Time: [facility] Clinical Note 02-18-2022 Note Date & Type Note Facility 02-18-2022 Note ORIGINAL EXAMINATION: THREE XRAY VIEWS OF THE LEFT ELBOW 02/18/2022 8:49 pm COMPARISON: None. HISTORY: ORDERING SYSTEM PROVIDED HISTORY: Reason for Exam: pain IMPRESSION: Tiny osseous fragment adjacent to the medial epicondyle of the distal humerus is present. There is a suspected small anterior elbow joint effusion, raising suspicion for an acute fracture. Repeat radiograph in 7-[address] of the elbow is suggested for further evaluation. Interpreted by: Charbel Ryan MD Preliminary Report By: Charbel Ryan MD Electronically signed By Charbel Ryan MD Dictated Date: 02/18/2022 9:03:27 PM Prelim Date: 02/18/2022 9:08:26 PM Sign Date: 02/18/2022 9:08:26 PM Ordering Provider: JJ STARK [facility] Clinical Note 02-18-2022 Note Date & Type Note Facility 02-18-2022 Note ORIGINAL EXAMINATION: THREE XRAY VIEWS OF THE LEFT WRIST 02/18/2022 8:51 pm COMPARISON: None HISTORY: ORDERING SYSTEM PROVIDED HISTORY: Reason for Exam: pain FINDINGS: No acute fracture or dislocation is identified. The joint spaces and carpal alignment are maintained. Mild soft tissue swelling is seen surrounding the wrist. No radiopaque foreign body. A well corticated ossific density is seen anteriorly to the 5th metatarsal head on lateral view possibly an ossicle versus sequela of remote injury. IMPRESSION: No acute osseous abnormality. Preliminary Report was Dictated by a Resident Interpreted by: Charbel Ryan MD Preliminary Report By: Rey Schmidt Electronically signed By Charbel Ryan MD Dictated Date: 02/18/2022 9:20:29 PM Prelim Date: 02/18/2022 9:24:28 PM Sign Date: 02/18/2022 9:56:45 PM Ordering Provider: JJCadence STARK [facility] Clinical Note 02-18-2022 Note Date & Type Note Facility 02-18-2022 Note ORIGINAL EXAMINATION: THREE XRAY VIEWS OF THE LEFT ELBOW 02/18/2022 8:49 pm COMPARISON: None. HISTORY: ORDERING SYSTEM PROVIDED HISTORY: Reason for Exam: pain IMPRESSION: Tiny osseous fragment adjacent to the medial epicondyle of the distal humerus is present. There is a suspected small anterior elbow joint effusion, raising suspicion for an acute fracture. Repeat radiograph in 7-[address] of the elbow is suggested for further evaluation. Interpreted by: Charbel Ryan MD Preliminary Report By: Charbel Ryan MD Electronically signed By Charbel Ryan MD Dictated Date: 02/18/2022 9:03:27 PM Prelim Date: 02/18/2022 9:08:26 PM Sign Date: 02/18/2022 9:08:26 PM Ordering Provider: JJ STARK [facility] Evaluation + Plan note Note Date & Type Note Facility Evaluation + Plan note No data available for this section [facility] Summary Purpose Family History No Family History Records FoundNo Family History Records Found Advance Directives No Advanced Directives Records FoundNo Advanced Directives Records Found Additional Source Comments INFORMATION SOURCE (unrecogn ized section and content) DATE CREATED AUTHOR AUTHOR'S ORGANIZ ATION 03/04/2022 [facility] ([place]) Care Team (unrecognized sect ion and content) Care Team Personnel Name: PHYSICIAN, NONE Position: Physician Member Role: Primary Care Physician Name: Ida Amaral RN Position: AO RN Member Role: RN Name: JJ STARK MD Position: ED Physician Member Role: ED Physician Address: Address: [address] [place] [id number] FOR RECORDS PERTAINING TO PATIENTS WHO ARE OR HAVE BEEN ENROLLED IN A CHEMICAL DEPENDENCY/SUBSTANCEABUSE PROGRAM, SOME INFORMATION MAY BE OMITTED. This clinical summary was aggregated from multiple sources. Caution should be exercised in using it in the provision of clinical care. This summary normalizes information from multiple sources, and as a consequence, information in this document may materially change the coding, format and clinical context of patient data. In addition, data may be omitted in some cases. CLINICAL DECISIONS SHOULD BE BASED ON THE PRIMARY CLINICAL RECORDS. [facility]. provides no warranty or guarantee of the accuracy or completeness of information in this document.
== END | disposition home or self-care (01) ==
LOC: LABSPEC 15:21
PROVIDERS: Referring Provider Physician Assistant Surgical; Visit Provider Physician Assistant Surgical
DX: N39.0 Urinary tract infection, site not specified (principal)
CPT/HCPCS: 87086; 87088; 87186

== ENCOUNTER 2023-09-01 06:30 | Emergency (ER) | payer SELFPAY ==
[2023-09-01 06:31] VITALS: BP 152/73; PULSE 67; RESP 16; TEMP 36.3; O2SAT 98; BMI 39.6
[2023-09-01 06:51] VITALS: BP 152/73; PULSE 71; RESP 16; O2SAT 97
--- NOTE | 2023-09-01 07:07 | CT_ITS ---
STUDY: CT ABDOMEN AND PELVIS WITHOUT CONTRAST REASON FOR EXAM: Female, 52 years old. Flank pain RADIATION DOSAGE (If Supplied By Facility): CTDIvol = ( 21.26 ) mGy, DLP = ( 1131.18 ) mGycm TECHNIQUE: Transaxial images were obtained from the dome of the diaphragm to the symphysis pubis without oral contrast, and without intravenous contrast. Sagittal and coronal images were reconstructed. Individualized dose optimization techniques were used for this CT. COMPARISON: 03/05/2023 FINDINGS: The visualized lung bases are unremarkable. The visualized portions of the heart are within normal limits. Normal liver. Normal gallbladder and extrahepatic biliary system. Normal spleen. Normal pancreas. Normal bilateral adrenal glands. Normal-appearing left kidney. Right kidney shows hydronephrosis and hydroureter with perinephric and periureteral inflammatory stranding. Findings due to a 5 mm stone in the proximal right ureter seen best on coronal reconstruction image 74. The right ureter distal to that stone is of normal course and caliber. There are nonobstructing punctate right renal stones. Normal visualized stomach. Normal small intestine. Normal colon. The appendix is visualized and appears normal. Findings seen on axial images 115 through 124 Normal abdominal aorta. Normal inferior vena cava. Normal retroperitoneum. Normal urinary bladder. Normal abdominal wall. Normal osseous structures. CT/Abdomen/Pelvis without Cont IMPRESSION: Right-sided hydronephrosis and hydroureter with perinephric and periureteral inflammatory stranding due to a 5 mm stone in the proximal right ureter Punctate nonobstructing right renal stones No free intraperitoneal fluid, air, or suspicious adenopathy. Normal appendix visualized Electronically Signed: Lamberto Hernandez MD at 8:34 EDT ,
[2023-09-01] MEDS: Ondansetron 4 MG/2 ML Vial IV (07:17)
[2023-09-01] MEDS: Ketorolac 15 MG/ML Vial IV (07:18)
[2023-09-01] MEDS: Morphine 4 MG/ML Syringe IV (07:19)
[2023-09-01] MEDS: 0.9% Normal Saline (1000mL) 1,000 ML 999 ML IV (07:20)
[2023-09-01 07:27] LABS: Absolute Lymphocyte Count 2.06 X10^3/uL (0.83-4.51); Absolute Neutrophil Count 5.1 X10^3/uL (2.0-7.7); Basophil# 0.05 X10^3/uL; Basophil% 0.6 % (0-1); Eosinophil# 0.17 X10^3/uL; Eosinophils% 2.1 % (0-5); Hematocrit 44.2 % (37-47); Hemoglobin 15.1 g/dL (12.0-15.0); Lymphocyte # 2.06 X10^3/ul (0.83-4.51); Lymphocyte % 25.8 % (19-41); Mean Corp Hgb Conc 34.2 g/dL (32-36); Mean Corpuscular Hgb 30.9 pg (27.0-32.0); Mean Corpuscular Volume 90.4 fL (81-99); Mean Platelet Vol. 10.8 fl (6.2-12.0); Monocyte# 0.58 X10^3/uL; Monocyte% 7.3 % (0-10); NRBC Flagged by Analyzer 0 % (0-5); Neutrophil # 5.12 X10^3/uL (2.7-7.7); Neutrophil % 63.9 % (47-70); Platelet Count 242 K/mm3 (150-450); RBC Distribution Width CV 11.9 % (11.6-14.6); RBC Distribution Width SD 39.3 fl (35.1-43.9); Red Blood Count 4.89 M/mm3 (4.2-5.4)
[2023-09-01 07:30] LABS: Color, Urine Yellow (Yellow); Glucose, Dipstick 1000 mg/dl (Normal); Ketone-Dipstick 15 mg/dl (Negative); Leukocyte Esterase-Dipstick 25 /ul (Negative); Nitrite-Dipstick Negative (Negative); Occult Blood-Urine 250 /ul (Negative); Protein-Dipstick 100 mg/dl (Negative); Urine Bilirubin Dipstick Negative (Negative); Urine Clarity Cloudy (Clear); Urine Urobilinogen 1 mg/dl (Normal)
[2023-09-01 07:39] LABS: Bacteria 2+ /hpf (None Seen); Calcium Oxalate Crystals Ur 2+ /hpf (<or=2+); Mucous, Urine 1+ /hpf (<or=2+); Red Blood Cells-Urine 50-100 SEEN /hpf (0-5); Squamous Epithelial Cells - UA 0-5 SEEN /hpf (5-10); White Blood Cells 0-5 SEEN /hpf (0-5)
[2023-09-01 07:46] LABS: AST(SGOT) 79 U/L (15-37); Alanine Aminotransfer ALT/SGPT 141 U/L (13-56); Albumin, Serum 3.8 g/dL (3.2-5.0); Alkaline Phosphatase 69 U/L (45-117); Anion Gap 9 (5-15); BUN 14 mg/dL (7-18); BUN/Creat Ratio 14.3 RATIO (10-20); Bilirubin, Direct 0.16 mg/dL (0.00-0.30); Calcium,Total 9.3 mg/dL (8.5-10.1); Chloride 102 mmol/L (98-107); Creatinine, Serum 0.98 mg/dL (0.55-1.02); EST Glomerular Filtration Rate 63 mL/min (>60); Est Glom Filt Rate - Afr Amer 77 mL/min (>60); Estimated Creatinine Clearance 76.41 ml/min; Globulin 3.7 g/dL (2.2-4.2); Glucose 318 mg/dL (74-106); Lipase 46 U/L (13-75); Protein, Total 7.5 g/dL (6.4-8.2); Sodium Level 134 mmol/L (136-145)
--- NOTE | 2023-09-01 07:46 | EDS_ITS ---
HPI History of Present Illness Chief Complaint: Abd Pain Informant: patient and spouse/S.O. Narrative Narrative: 52-year-old female presenting to the emergency room with a chief complaint of abdominal pain. Patient states that she woke from sleep with pain. This occurred around 0300 hrs. She states that it has been pretty constant. She states that when she went to take a shower she thought maybe it went away but it was still present/came back. She notes nausea without vomiting. No bowel movement today. She states that she had a loose stool yesterday. No reported fevers. She states that she has had frequent urinary tract infections recently and has been seeing Dr. Myers for this. She states that she had a CAT scan earlier this year was found to have kidney stones in the kidney. She is never passed that she is aware of. Patient notes a prior and hysterectomy. No reports of bowel obstruction in the past. Dr. Davies had prescribed nitrofurantoin as needed. She took a dose of this this morning. [facility] Medical History Diabetes Kidney stones Vaginal candidiasis Glucosuria UTI (urinary tract infection) Home Medications ?Medication ?Instructions ?Recorded ?Last Taken ?Type DEMANNOS 09/01/23 Unknown History Probiotic 09/01/23 Unknown History ascorbic acid (vitamin C) 500 mg 500 mg PO DAILY 09/01/23 Unknown History tablet (C-500) cephalexin 500 mg capsule 500 mg PO TID 7 days #21 CAPSULES 09/01/23 Unknown Rx multivitamin with minerals-folic 1 tab PO DAILY 09/01/23 Unknown History acid 80 mcg chewable tablet (Centrum Adult 50 Plus) nitrofurantoin 1 cap PO BID 09/01/23 Unknown History monohydrate/macrocrystals 100 mg capsule omega-3 fatty acids 500 mg capsule 500 mg PO DAILY 09/01/23 Unknown History ondansetron 4 mg disintegrating 4 mg PO Q6H PRN PRN Nausea #10 tabs 09/01/23 Unknown Rx tablet oxycodone-acetaminophen 5 mg-325 1 tab PO Q6H PRN PRN pain 5 days 09/01/23 Unknown Rx mg tablet #20 TABLETS Allergy/AdvReac Type Severity Reaction Status Date / Time latex Allergy Rash Verified 04/10/23 12:10 Penicillins Allergy Rash Verified 04/10/23 12:10 Surgical History History of laparoscopic-assisted vaginal hysterectomy (~01/31/20) Tubal ligation status delivery delivered Social History Smoking Status: Never smoker alcohol intake: never substance use type: does not use caffeine: Yes what type of physical activity do you participate in: walking frequency: 1-2 times per week seatbelt use: always do you feel safe at home: Yes additional social history: [employer] Patient works at [employer] [facility] ROS ED Constitutional Constitutional ED: Denies chills, fever(s) or weight loss Eyes Eyes: Denies change in vision or diplopia ENT ENT ED: Denies ear pain, rhinorrhea or sore throat Cardiovascular Cardiovascular: Denies chest pain, orthopnea, palpitations or racing heartbeat Respiratory/Chest Respiratory/Chest: Denies cough, dyspnea or orthopnea Gastrointestinal Gastrointestinal: Reports abdominal pain; Denies diarrhea, nausea or vomiting Genitourinary Genitourinary ED: Reports urinary frequency and other Details: Frequent small amounts of urination ; Denies dysuria or hematuria Musculoskeletal Musculoskeletal: Reports back pain; Denies arthralgias or myalgias Integumentary Denies abscess or rash Neurologic Neurologic: Denies headache(s) or weakness Psychiatric Psychiatric: Denies anxiety, depression, suicidal ideation or suicidal thoughts Endocrine Endocrinology: Denies polydipsia, polyphagia or polyuria Allergic/Immunologic Allergic/Immunologic ED: Denies mouth swelling, tongue swelling or urticaria EXAM Physical Exam Narrative Exam Narrative: Patient appears uncomfortable in the bed. Const Vital Signs: 09/01/23 06:31 09/01/23 06:51 09/01/23 08:31 Temperature 97.4 F L Temperature Source Oral Pulse Rate 67 71 71 Respiratory Rate 16 16 16 Blood Pressure 152/73 H 152/73 H 146/83 H Blood Pressure Mean 99 99 104 Pulse Ox 98 97 98 Oxygen Delivery Method Room Air Room Air Room Air 09/01/23 09:53 Temperature 97.6 F L Temperature Source Pulse Rate 88 Respiratory Rate 18 Blood Pressure 139/77 H Blood Pressure Mean 97 Pulse Ox 97 Oxygen Delivery Method Positive well nourished, well developed and obese General Appearance ED: well developed and NAD Nutritional Appearance: obese HEENT Reports normocephalic, head/scalp atraumatic and moist mucous membranes Eyes PERRL and EOMs intact bilaterally Neck no lymphadenopathy, supple and no JVD Resp normal respiratory effort and clear to auscultation bilaterally Cardio regular rate, regular rhythm and no murmurs GI normal to inspection, nondistended, normoactive bowel sounds and non-tender Palpation: soft Back/Spine no CVA tenderness and normal ROM Extremity normal to inspection General Extremety ED: Negative for edema General Extremity: Negative for edema Neuro oriented x3 and CN's II-XII intact bilaterally Sensorium / Orientation: alert Motor Exam: strength 5/5 throughout Psych mental status grossly normal Mood & Affect: Negative for depressed or tearful Skin no rashes or lesions noted and no wounds MDM MDM MDM Narrative Medical decision making narrative: Differential diagnosis includes but not limited to biliary colic colitis kidney stone pyelonephritis gastritis/GERD/ulcer perforated viscus bowel obstruction White count 8.0 with a hemoglobin of 15.1. Platelet count of 241. Glucose is noted to be 318. ALT of 141 AST of 79. Lipase noted to be 46. Urinalysis with 50-100 red cells 0-5 white cells 2+ bacteria calcium oxalate crystals noted. CT abdomen pelvis demonstrates a proximal 5 mm stone with some hydronephroureter. Patient received IV fluids Toradol morphine and Zofran. Her pain is significantly improved. I spoke with Dr. Davies who is the patient's urologist. Patient be discharged home on pain medication. Her stop her nitrofurantoin and begin Keflex 3 times daily. We talked about return instructions as well as follow-up. Patient notes understanding of the plan and is comfortable with it. History & Record Review Discussion w/independent historian: Patient and Significant other Lab Data Attestation: I reviewed the patient's lab results. Labs: Laboratory Results - last 24 hr 09/01/23 09/01/23 06:52 06:57 WBC 8.0 RBC 4.89 Hgb 15.1 H Hct 44.2 MCV 90.4 MCH 30.9 MCHC 34.2 RDW Std Deviation 39.3 RDW Coeff of Bienvenido 11.9 Plt Count 242 MPV 10.8 Immature Gran % (Auto) 0.300 Neut % (Auto) 63.9 Lymph % (Auto) 25.8 [place] % (Auto) 7.3 Eos % (Auto) 2.1 Baso % (Auto) 0.6 Absolute Neuts (auto) 5.1 Absolute Lymphs (auto) 2.06 Nucleated RBC % 0 Sodium 134 L Potassium 4.0 Chloride 102 Carbon Dioxide 23.0 Anion Gap 9 BUN 14 Creatinine 0.98 Estim Creat Clear Calc 76.41 Est GFR (MDRD) Af Amer 77 Est GFR (MDRD) Non-Af 63 BUN/Creatinine Ratio 14.3 Glucose 318 H Calcium 9.3 Total Bilirubin 0.80 Direct Bilirubin 0.16 AST 79 H ALT 141 H Alkaline Phosphatase 69 Total Protein 7.5 Albumin 3.8 Globulin 3.7 Lipase 46 Urine Color Yellow Urine Clarity Cloudy Urine pH 5.0 Ur Specific [place] 1.030 Urine Protein 100 H Urine Glucose (UA) 1000 H Urine Ketones 15 H Urine Occult Blood 250 H Urine Nitrite Negative Urine Bilirubin Negative Urine Urobilinogen 1 H Ur Leukocyte Esterase 25 H Urine RBC 50-100 SEEN Urine WBC 0-5 SEEN Ur Squamous Epith Cells 0-5 SEEN Calcium Oxalate Crystal 2+ Urine Bacteria 2+ Urine Mucus 1+ Radiography Diagnostic Testing: Clinical Impression(s) from Imaging Studies Abdomen/Pelvis CT 09/01/23 07:07 IMPRESSION: Right-sided hydronephrosis and hydroureter with perinephric and periureteral inflammatory stranding due to a 5 mm stone in the proximal right ureter Punctate nonobstructing right renal stones No free intraperitoneal fluid, air, or suspicious adenopathy. Normal appendix visualized Electronically Signed: Lamberto Hernandez MD at 8:34 EDT Reading Location ID and State: [facility] , Service support , Management Discussion w/another healthcare provider: Factory Supervisor (Dr. Davies (Urology)) Discharge Plan Triage Chief Complaint: Abd Pain ED Provider: Francisco J Hart Dx/Rx/DC Orders Clinical Impression: Ureterolithiasis, Renal colic on right side Instructions: ED Kidney Stone with Pain Prescriptions: New cephalexin 500 mg capsule 500 mg PO TID 7 Days Qty: 21 0RF oxycodone-acetaminophen 5-325 mg tablet 1 tab PO Q6H PRN PRN (Reason: pain) 5 Days Qty: 20 0RF ondansetron 4 mg tablet,disintegrating 4 mg PO Q6H PRN PRN (Reason: Nausea) Qty: 10 0RF No Action Centrum Adult 50 Plus 80 mcg tablet,chewable 1 tab PO DAILY nitrofurantoin monohyd/m-cryst 100 mg capsule 1 cap PO BID DEMANNOS ascorbic acid (vitamin C) [C-500] 500 mg tablet 500 mg PO DAILY Probiotic omega-3 fatty acids 500 mg capsule 500 mg PO DAILY Primary Care Provider: Amie Epstein NP Referrals: Kayla Davies MD [Med Staff - Active Staff] - As soon as possible Care Physician,No Primary [Non-Staff] - Print Language: Wolof Disposition Disposition: Home, Self Care Discharge Date/Time: 09/01/23 09:55
[2023-09-01 08:31] VITALS: BP 146/83; PULSE 71; RESP 16; O2SAT 98
[2023-09-01 09:53] VITALS: BP 139/77; PULSE 88; RESP 18; TEMP 36.4; O2SAT 97
== END 2023-09-01 09:55 | disposition home or self-care (01) ==
LOC: ED 07:48
PROVIDERS: Emergency Provider Emergency Medicine; PCP Registered Nurse; Visit Provider Emergency Medicine
DX: N13.2 Hydronephrosis with renal and ureteral calculous obstruction (principal); E11.9 Type 2 diabetes mellitus without complications; N23 Unspecified renal colic; Z90.710 Acquired absence of both cervix and uterus; Z98.51 Tubal ligation status
CPT/HCPCS: 74176; 80048; 80076; 81001; 83690; 85025; 96361; 96374; 96375; 99283; J2405

== ENCOUNTER → 2024-07-04 | Outpatient (CLI) | payer SELFPAY ==
--- NOTE | 2024-07-04 08:47 | BI_ITS ---
EXAM: SCRN MAMM (CAD)W/CLAU BILAT DATE: 07/04/2024 CLINICAL HISTORY: F, Age 53 y/o , SCREENING BREAST CANCER RISK ASSESSMENT: Has not been calculated TECHNIQUE: Bilateral screening digital breast tomosynthesis with 2D and 3D images. Computer aided detection. COMPARISON: Prior exam(s) dated mammogram studies dated 08/08/2022 and 04/10/2021. FINDINGS: TISSUE DENSITY: The breast tissue is composed of scattered area of fibroglandular density. Bilateral Breast Mammographic Findings: No significant masses, calcifications or other abnormalities are identified. Benign round calcifications are seen in both breasts. BI/SCRN MAMM (CAD)W/CLAU BILAT IMPRESSION: OVERALL FINAL ASSESSMENT: BIRADS 2 BENIGN FINDING RECOMMENDATION: Routine annual follow-up in 1 Year A letter with findings and recommendations will be mailed to the patient. Reading Location: [id number]
[2024-07-04 09:58] LABS: Hematocrit 45.3 % (37-47); Hemoglobin 15.8 g/dL (12.0-15.0); Mean Corp Hgb Conc 34.9 g/dL (32-36); Mean Corpuscular Volume 88.8 fL (81-99); Mean Platelet Vol. 10.3 fl (6.2-12.0); Platelet Count 256 K/mm3 (150-450); RBC Distribution Width CV 11.8 % (11.6-14.6); RBC Distribution Width SD 38.5 fl (35.1-43.9); White Blood Count 6.3 K/mm3 (4.4-11.0)
[2024-07-04 10:53] LABS: Cholesterol 248 mg/dL (<=200); High Density Lipoprotein 39 mg/dL; Low Density Lipoprotein Calc. 152 mg/dL; Triglycerides 287 mg/dL; Very Low Density Lipoprotein 57 mg/dL (5-40); cholesterol:hdl ratio screen 6.38
[2024-07-04 11:05] LABS: ALB/GLOB Ratio 1.5 RATIO (0.9-2.4); AST(SGOT) 50 U/L (<=31); Alanine Aminotransfer ALT/SGPT 89 U/L (<=34); Albumin, Serum 4.4 g/dL (3.5-5.0); Alkaline Phosphatase 81 U/L (35-104); Anion Gap 11 (5-15); BUN 11 mg/dL (4-19); BUN/Creat Ratio 14.6 RATIO (10-20); Calcium,Total 9.7 mg/dL (7.6-11.0); Carbon Dioxide 24.2 mmol/L (21.0-32.0); Chloride 98 mmol/L (98-108); Creatinine, Serum 0.77 mg/dL (0.70-1.20); EST Glomerular Filtration Rate 92 (>60); Globulin 2.9 g/dL (2.2-4.2); Glucose 391 mg/dL (70-99); Potassium 4.2 mmol/L (3.3-5.1); Protein, Total 7.3 g/dL (5.9-8.4); Sodium Level 133 mmol/L (133-145); Total Bilirubin 0.45 mg/dL (0.00-1.30)
== END | disposition home or self-care (01) ==
PROVIDERS: PCP Registered Nurse; Referring Provider Registered Nurse; Visit Provider Registered Nurse
DX: Z00.00 Encounter for general adult medical examination without abnormal findings (principal); Z12.31 Encounter for screening mammogram for malignant neoplasm of breast
CPT/HCPCS: 36415; 77063; 77067; 80053; 80061; 85027